=== PATIENT | female | born 1980 | race African-American/Black ===

== ENCOUNTER 2020-01-20 14:48 | Emergency (ER) | payer BC ==
[~2020-01-20] VITALS: Ht 175.3 cm; Wt 78.5 kg
--- NOTE | 2020-01-20 14:55 | NUR ---
pt came to ER with c/o left knee pain x 4 days s/p slipped while playing basketball, 8/10 pain. able to ambulate with steady gait. no swelling. no discoloration. awaiting for MD hay
--- NOTE | 2020-01-20 14:57 | NUR ---
DR LOPEZ AT BEDSIDE
[2020-01-20] MEDS ORDERED: HYDROCODONE/APAP 5/325MG TABLET ONE (15:21)
[2020-01-20] MEDS ORDERED: ONDANSETRON 4 MG TAB.RAPDIS ONE (15:21)
[2020-01-20] MEDS ORDERED: ONDANSETRON 4 MG TAB.RAPDIS SL ONE (15:30)
[2020-01-20] MEDS ORDERED: HYDROCODONE/APAP 10/325MG TABLET PO ONE (15:30)
--- NOTE | 2020-01-20 16:13 | NUR ---
Patient discharged to home with in stable condition. Written and verbal after care instructions given. Patient verbalizes understanding of instruction.
[2020-01-20 16:14] VITALS: BP 108/74
== END 2020-01-20 16:15 | disposition home or self-care (01) ==
LOC: ER 14:49
DX: S89.82XA Other specified injuries of left lower leg, initial encounter (principal); Z98.890 Other specified postprocedural states; Z88.2 Allergy status to sulfonamides; W18.39XA Other fall on same level, initial encounter; Y93.67 Activity, basketball; Y92.89 Other specified places as the place of occurrence of the external cause; Y99.8 Other external cause status
CPT/HCPCS: 73564; 99283; Q0162